=== PATIENT | male | born 1955 | race Caucasian/White ===

== ENCOUNTER 2018-08-06 06:39 | Day surgery (SDC) | payer BC ==
[2018-08-03 10:01] VITALS: BMI 30.5
--- NOTE | 2018-08-06 10:40 | RAD ---
LUMBAR MYELOGRAM: Date: 08/06/18 HISTORY: Spondylopathy. Radiculopathy. COMPARISON: None. FINDINGS: Two view lumbar spine application lead radiograph demonstrates five lumbar-type vertebral bodies. Lumbar spine v ertebral body height is maintained. There is no fracture. There is lucency involving the inferior asp ect of L5, incompletely evaluated. Refer to post myelogram CT for further detail. Successful lumbar myelogram. A total of 10 mL of Isovue-M 200 contrast was administered intrathecally . The patient tolerated the procedure well. No immediate or postprocedure complication. TECHNIQUE: Consent obtained to perform a lumbar puncture for intrathecal contrast administration. Patient's back was evaluated. The L3-L4 level was deemed appropriate. Skin was prepped and draped in the sterile fa shion. 1% lidocaine, buffered with sodium bicarbonate, was used for local anesthesia. Under fluorosco pic guidance, a 22 gauge spinal needle was advanced into the CSF space. There is prompt flow of CSF t o the hub of the needle. Via a short tubing catheter, a total of 10 mL of Isovue-M 200 contrast was a dministered intrathecally. The patient tolerated the procedure well. No immediate or postprocedure co mplications. IMPRESSION: Successful lumbar myelogram. Please refer to post myelogram CT for further details. POS: REYMUNDO
--- NOTE | 2018-08-06 11:36 | CT ---
POST MYELOGRAM LUMBAR SPINE CT: Date: 08/06/18 HISTORY: Radiculopathy. Spondylopathy. COMPARISON: None. TECHNIQUE: Post myelogram lumbar spine CT is performed in the axial plane. Reformatted images are submitted for interpretation. FINDINGS: There is no retroperitoneal mass, lymphadenopathy, or hematoma. Visualized alimentary canal and solid organs are unremarkable. Atherosclerosis of a nonaneurysmal aorta. Symmetric attenuation of the psoa s muscles. Conus medullaris terminates at the superior aspect of L1. Lumbar spine vertebral body height is maintained. There is no lumbar spine fracture. There are five l umbar-type vertebral bodies. On the coronal reformatted images, no malalignment. Spinous processes and transverse processes are in tact. T11-T12 and T12-L1: No high grade central canal stenosis. Neural foramina are patent. L1-L2: No posterior disc abnormality. No significant central canal stenosis. Neural foramina are pat ent. L2-L3: Vacuum disc phenomenon. Generalized disc bulge, ligamentum flavum thickening, and facet hyper trophy result in moderate central canal stenosis. Moderate bilateral neural foraminal narrowing. L3-L4: Broad based disc bulge, ligamentum flavum thickening, and facet hypertrophy result in moderat e to severe central canal stenosis. Mild right and moderate left neural foraminal narrowing. L4-L5: Broad based disc bulge with small central disc herniation. Mild ligamentum flavum thickening and facet hypertrophy. Overall mild central canal stenosis. Moderate to severe bilateral foraminal na rrowing. L5-S1: There is severe loss of disc space height. There is a generalized disc bulge with a small lef t subarticular component of disc material and osteophyte. No significant stenosis of the thecal sac. No significant narrowing of the subarticular zone bilaterally. Moderate to severe right and severe le ft foraminal narrowing. IMPRESSION: 1. Moderate to severe central canal stenosis at L3-L4. 2. Significant neural foraminal narrowing at multiple levels, as detailed above. POS: REYMUNDO
== END 2018-08-06 10:15 | disposition home or self-care (01) ==
LOC: RAD 06:39
PROVIDERS: ATTEND Radiology Diagnostic Radiology
PROC: B02B1ZZ Computerized Tomography (CT Scan) of Spinal Cord using Low Osmolar Contrast (ICD-10-PCS; principal; 2018-08-06)
DX: M54.16 Radiculopathy, lumbar region (principal); M48.8X6 Other specified spondylopathies, lumbar region; M48.061 Spinal stenosis, lumbar region without neurogenic claudication; Z91.013 Allergy to seafood; Z91.018 Allergy to other foods; Z79.82 Long term (current) use of aspirin; Z79.899 Other long term (current) drug therapy
CPT/HCPCS: 62304; 72132